=== PATIENT | female | born 1930 | race African-American/Black ===

== ENCOUNTER 2016-05-19 14:36 | Inpatient (IN) | payer OTHER ==
[~2016-05-19] VITALS: Ht 154.9 cm; Wt 63.9 kg
[~2016-05-19 14:36] MED LIST: ACTOS15 MG PO; ALPHAGAN P15 ML BOTH EYES; APRESOLINE100 MG PO; AQUAPHOR W-NAT50 GM TP; ASTELIN, ASTEPR30 ML NS; ATIVAN0.5 MG PO; AZOPT 1% O200 DROP/1 BOTH EYES; BACTRIM,SEPT1 TABLET PO; CALCIUM + D SO1 EACH PO; CALCIUM SUPPLEMENT PO; CALCIUM500 M6 PO; CARDIZEM CD120 M1 PO; CARDIZEM CD120 MG PO; CARDIZEM120 MG PO; CATAPRES-TTS 20.2 MG TP; CIPROFLOXACIN500 M1 PO; CLARITIN,ALAVAR10 MG PO; COLACE100 MG PO; COSOPT EYE DROPS5 ML BOTH EYES; COUMADIN,JANTO2.5 MG PO; COUMADIN,JANTOV10 MG PO; COUMADIN2 MG PO; COUMADIN2.5 MG PO; COUMADIN3 MG PO; COUMADIN4 MG PO; DILANTIN100 MG PO; DILTIAZEM 24HR120 MG PO; DOCUSATE SODIU100 MG PO; Dilantin PO; ENDOCET 5-3251 EACH PO; FLOVENT 22120 INHALA PO; LIPITOR10 MG PO; LIPITOR20 MG PO; LOPRESSOR50 MG PO; LORAZEPAM0.5 MG PO; LOVENOX40 MG/0.4 SC; LUMIGAN 0.50 DROP/22 BOTH EYES; MULTI-VITAMIN-1 EACH PO; MYCOSTATIN 100,60 ML PO; OXYCODONE-APAP1 EACH PO; PAXIL CR12.5 MG PO; PAXIL10 MG PO; PERCOCET 10/1 TABLET PO; PERCOCET 5/31 TABLET PO; PHENYTEK200 MG PO; PHENYTOIN 150 MG PO; PHENYTOIN SODI100 M1 PO; PIOGLITAZONE HC15 MG PO; SENNA8.6 MG PO; SEROQUEL100 MG PO; SEROQUEL12.5 MG PO; SEROQUEL50 MG PO; SIMBRINZA 1%-0.28 ML BOTH EYES; SINGULAIR10 MG PO; TYLENOL REGULA325 MG PO; WARFARIN SODIUM1 MG PO; XALATAN2.5 ML BOTH EYES; XARELTO15 MG PO; XARELTO20 MG PO
[2016-05-19 16:35] LABS: HEMATOCRIT 26.7 % (36.0-46.0); MCH 28.8 PG (29.0-34.0); MCV 87.3 FL (83-99); MEAN PLAT.VOLUME 8.9 uM^3 (9.5-12.4); PLATELET COUNT 354 K/uL (156-360); RBC DIS.WIDTH-CV 15.7 % (11.8-14.6); RBC DIS.WIDTH-SD 48.1 % (39-53); RED BLOOD COUNT 3.06 M/uL (3.80-5.20); WHITE BLOOD COUNT 5.4 K/uL (4.1-10.2)
[2016-05-19 16:42] LABS: ADD MIUA? YES; BILIRUBIN NEGATIVE; BLOOD SMALL; COLOR AMBER ((YELLOW)); GLUCOSE (STRIP) NEGATIVE; KETONES NEGATIVE; LEUKOCYTES MODERATE; NITRITE NEGATIVE; PROTEIN (STRIP) 100; SPECIFIC GRAVITY 1.016 (1.000-1.030); UROBILINOGEN 0.2 MG/DL (0.2-1.0)
[2016-05-19 16:46] LABS: CHLORIDE 114 mEq/L (99-109); POTASSIUM 3.6 mEq/L (3.7-5.4); SODIUM 141 mEq/L (136-147)
[2016-05-19 16:48] LABS: EOSINOPHIL (%) 0.4 % (0-5); GLUCOSE 82 mg/dL (70-99); MONOCYTE (%) 8.7 % (3-12); MONOCYTE COUNT 0.5 K/uL (0-0.8); NEUTROPHIL (%) 53.8 % (45-76); NEUTROPHIL COUNT 2.9 K/uL (1.8-6.4)
[2016-05-19 16:50] LABS: ANION GAP 8 MEQ/L (2-14); TOTAL BILIRUBIN 0.2 mg/dL (0.0-1.0)
[2016-05-19 16:52] LABS: ALKALINE PHOSPHATASE 171 IU/L (3-129); GFR ESTIMATE (CALCULATED) > 59 mL/min/
[2016-05-19 16:53] LABS: UREA NITROGEN (BUN) 16 mg/dL (9-23)
[2016-05-19 16:55] LABS: LIPASE 42 U/L (1.0-51.0)
[2016-05-19 17:02] LABS: CASTS NONE SEEN /LPF; EPITHELIAL CELLS NONE SEEN /HPF; MUCUS NONE SEEN /LPF
[2016-05-19 17:03] LABS: BACTERIA 4+ /HPF; RED BLOOD CELLS TNTC /HPF (0-5); UCUL ADDED? YES; WHITE BLOOD CELLS TNTC /HPF (0-5)
[2016-05-19] MEDS ORDERED: DILANTIN INFATA50 MG PO (19:19)
[2016-05-19] MEDS ORDERED: MIRTAZAPINE15 MG PO (19:21)
[2016-05-19 20:08] VITALS: BP 142/86
[2016-05-19 23:20] VITALS: BP 138/81
[2016-05-20] VITALS (11 sets, daily range): BP systolic 99–133; BP diastolic 49–66
[2016-05-20 07:09] LABS: ANION GAP 5 MEQ/L (2-14); CHLORIDE 117 MEQ/L (99-109); GFR ESTIMATE (CALCULATED) > 59 mL/min/; GLUCOSE 68 mg/dL (70-99); POTASSIUM 3.5 MEQ/L (3.7-5.4); SAMPLE HEMOLYSIS CHECK 0; SAMPLE ICTERIC CHECK 0; SAMPLE LIPEMIA CHECK 0; SODIUM 143 MEQ/L (136-147); UREA NITROGEN (BUN) 14 mg/dL (9-23)
[2016-05-20 07:45] LABS: EOSINOPHIL (%) 0.8 % (0-5); HEMATOCRIT 20.5 % (36.0-46.0); LYMPHOCYTE COUNT 1.7 K/uL (1.0-2.8); MCH 28.3 PG (29.0-34.0); MCHC 32.2 G/DL (30.0-36.0); MCV 87.7 FL (83-99); MONOCYTE (%) 9.5 % (3-12); MONOCYTE COUNT 0.4 K/uL (0-0.8); NEUTROPHIL (%) 47.2 % (45-76); NEUTROPHIL COUNT 1.9 K/uL (1.8-6.4); RBC DIS.WIDTH-CV 16.4 % (11.8-14.6); RBC DIS.WIDTH-SD 51.6 % (39-53)
[2016-05-20 07:47] LABS: RED BLOOD COUNT 2.33 M/uL (3.80-5.20)
[2016-05-20 08:31] LABS: MEAN PLAT.VOLUME 8.4 uM^3 (9.5-12.4)
[2016-05-20 08:57] LABS: PLATELET COUNT 224 K/uL (156-360)
[2016-05-21 00:24] VITALS: BP 137/62
[2016-05-21 07:00] VITALS: BP 140/64
[2016-05-21 07:48] LABS: EOSINOPHIL (%) 1.1 % (0-5); EOSINOPHIL COUNT 0.1 K/uL (0-0.3); HEMATOCRIT 31.2 % (36.0-46.0); LYMPHOCYTE COUNT 1.6 K/uL (1.0-2.8); MCH 28.8 PG (29.0-34.0); MCV 87.2 FL (83-99); MONOCYTE (%) 7.7 % (3-12); MONOCYTE COUNT 0.4 K/uL (0-0.8); NEUTROPHIL (%) 62.1 % (45-76); NEUTROPHIL COUNT 3.5 K/uL (1.8-6.4); PLATELET COUNT 235 K/uL (156-360); RBC DIS.WIDTH-CV 15.9 % (11.8-14.6); RBC DIS.WIDTH-SD 49.8 % (39-53)
[2016-05-21 07:53] LABS: RED BLOOD COUNT 3.58 M/uL (3.80-5.20); WHITE BLOOD COUNT 5.6 K/uL (4.1-10.2)
[2016-05-21 07:56] LABS: ANION GAP 6 MEQ/L (2-14); CHLORIDE 112 MEQ/L (99-109); GFR ESTIMATE (CALCULATED) > 59 mL/min/; GLUCOSE 65 mg/dL (70-99); POTASSIUM 3.9 MEQ/L (3.7-5.4); SAMPLE HEMOLYSIS CHECK 0; SAMPLE ICTERIC CHECK 0; SAMPLE LIPEMIA CHECK 0; SODIUM 141 MEQ/L (136-147); UREA NITROGEN (BUN) 15 mg/dL (9-23)
[2016-05-21 16:43] VITALS: BP 134/62
[2016-05-21 23:54] VITALS: BP 136/62
[2016-05-22 07:14] LABS: EOSINOPHIL (%) 0.2 % (0-5); HEMATOCRIT 29.8 % (36.0-46.0); IMMATURE GRANULOCYTE (%) 0.2 % (0.0-0.7); LYMPHOCYTE COUNT 1.5 K/uL (1.0-2.8); MCH 27.7 PG (29.0-34.0); MCHC 31.9 G/DL (30.0-36.0); MCV 86.9 FL (83-99); MONOCYTE (%) 8.3 % (3-12); MONOCYTE COUNT 0.4 K/uL (0-0.8); NEUTROPHIL (%) 61.1 % (45-76); NEUTROPHIL COUNT 3.1 K/uL (1.8-6.4); PLATELET COUNT 207 K/uL (156-360); RBC DIS.WIDTH-CV 15.7 % (11.8-14.6); RED BLOOD COUNT 3.43 M/uL (3.80-5.20); WHITE BLOOD COUNT 5.1 K/uL (4.1-10.2)
[2016-05-22 07:36] LABS: ANION GAP 6 MEQ/L (2-14); CHLORIDE 111 MEQ/L (99-109); GFR ESTIMATE (CALCULATED) > 59 mL/min/; GLUCOSE 70 mg/dL (70-99); POTASSIUM 3.7 MEQ/L (3.7-5.4); SAMPLE HEMOLYSIS CHECK 0; SAMPLE ICTERIC CHECK 0; SAMPLE LIPEMIA CHECK 0; SODIUM 141 MEQ/L (136-147); UREA NITROGEN (BUN) 14 mg/dL (9-23)
[2016-05-22 08:05] VITALS: BP 110/58
[2016-05-22 10:37] LABS: INFLUENZA A VIRAL ANTIGEN NEGATIVE; INFLUENZA B VIRAL ANTIGEN NEGATIVE
[2016-05-22 16:30] VITALS: BP 118/58
[2016-05-22 19:57] VITALS: BP 128/60
[2016-05-23] VITALS: BP 175/79
[2016-05-23 08:48] VITALS: BP 166/80
[2016-05-23 11:10] VITALS: BP 101/62
[2016-05-23 15:58] VITALS: BP 112/56
[2016-05-23 23:43] VITALS: BP 118/59
[2016-05-24 07:19] VITALS: BP 143/74
[2016-05-24 07:37] LABS: EOSINOPHIL (%) 0.7 % (0-5); HEMATOCRIT 31.7 % (36.0-46.0); LYMPHOCYTE COUNT 2.3 K/uL (1.0-2.8); MCH 29.1 PG (29.0-34.0); MCHC 32.8 G/DL (30.0-36.0); MCV 88.8 FL (83-99); MEAN PLAT.VOLUME 9.4 uM^3 (9.5-12.4); MONOCYTE (%) 11.5 % (3-12); MONOCYTE COUNT 0.5 K/uL (0-0.8); NEUTROPHIL (%) 34.6 % (45-76); NEUTROPHIL COUNT 1.5 K/uL (1.8-6.4); PLATELET COUNT 149 K/uL (156-360); RBC DIS.WIDTH-CV 15.9 % (11.8-14.6); RED BLOOD COUNT 3.57 M/uL (3.80-5.20); WHITE BLOOD COUNT 4.3 K/uL (4.1-10.2)
[2016-05-24 08:08] LABS: ANION GAP 7 MEQ/L (2-14); CHLORIDE 111 MEQ/L (99-109); GFR ESTIMATE (CALCULATED) > 59 mL/min/; GLUCOSE 63 mg/dL (70-99); POTASSIUM 3.9 MEQ/L (3.7-5.4); SAMPLE HEMOLYSIS CHECK 0; SAMPLE ICTERIC CHECK 0; SAMPLE LIPEMIA CHECK 0; SODIUM 139 MEQ/L (136-147); UREA NITROGEN (BUN) 15 mg/dL (9-23)
[2016-05-24 11:16] VITALS: BP 131/63
[2016-05-24 16:30] VITALS: BP 104/56
[2016-05-24 23:51] VITALS: BP 106/52
[2016-05-25 06:36] LABS: MCH 28.9 PG (29.0-34.0); MCHC 32.4 G/DL (30.0-36.0); MCV 89.2 FL (83-99); MEAN PLAT.VOLUME 9.3 uM^3 (9.5-12.4); PLATELET COUNT 141 K/uL (156-360); RBC DIS.WIDTH-SD 52.1 % (39-53); RED BLOOD COUNT 3.25 M/uL (3.80-5.20); WHITE BLOOD COUNT 3.6 K/uL (4.1-10.2)
[2016-05-25 06:46] LABS: EOSINOPHIL (%) 1.1 % (0-5); MONOCYTE (%) 8.4 % (3-12); MONOCYTE COUNT 0.3 K/uL (0-0.8); NEUTROPHIL (%) 33.2 % (45-76); NEUTROPHIL COUNT 1.2 K/uL (1.8-6.4)
[2016-05-25 07:03] LABS: ANION GAP 2 MEQ/L (2-14); CHLORIDE 113 MEQ/L (99-109); GFR ESTIMATE (CALCULATED) > 59 mL/min/; GLUCOSE 71 mg/dL (70-99); POTASSIUM 4.1 MEQ/L (3.7-5.4); SAMPLE HEMOLYSIS CHECK 0; SAMPLE ICTERIC CHECK 0; SAMPLE LIPEMIA CHECK 0; SODIUM 143 MEQ/L (136-147); UREA NITROGEN (BUN) 16 mg/dL (9-23)
[2016-05-25 07:48] VITALS: BP 124/60
[2016-05-25] MEDS ORDERED: FUROSEMIDE40 MG PO (11:25)
[2016-05-25] MEDS ORDERED: LEVAQUIN750 MG PO (11:26)
[2016-05-25] MEDS ORDERED: PERCOCET 10/1 TABLET PO (11:26)
[2016-05-25] MEDS ORDERED: LORAZEPAM0.5 MG PO (11:26)
[2016-05-25 12:00] VITALS: BP 107/59
== END 2016-05-25 14:16 | DRG 689 ==
LOC: EME 14:36 → EDOF 19:00 → 2EAST 19:00
PROVIDERS: Emergency Medicine; Family Medicine
PROC: 30233N1 Transfusion of Nonautologous Red Blood Cells into Peripheral Vein, Percutaneous Approach (ICD-10-PCS; principal; 2016-05-20)
DX: N39.0 Urinary tract infection, site not specified (principal); J18.9 Pneumonia, unspecified organism; F33.9 Major depressive disorder, recurrent, unspecified; S72.91XK Unspecified fracture of right femur, subsequent encounter for closed fracture with nonunion; R18.8 Other ascites; J90 Pleural effusion, not elsewhere classified; I11.0 Hypertensive heart disease with heart failure; F03.90 Unspecified dementia, unspecified severity, without behavioral disturbance, psychotic disturbance, mood disturbance, and anxiety; D63.8 Anemia in other chronic diseases classified elsewhere; J43.9 Emphysema, unspecified; I48.0 Paroxysmal atrial fibrillation; E11.9 Type 2 diabetes mellitus without complications; E86.0 Dehydration; N20.0 Calculus of kidney; E78.5 Hyperlipidemia, unspecified; I25.10 Atherosclerotic heart disease of native coronary artery without angina pectoris; G89.29 Other chronic pain; E66.9 Obesity, unspecified; E88.09 Other disorders of plasma-protein metabolism, not elsewhere classified; Z68.26 Body mass index [BMI] 26.0-26.9, adult; Z87.891 Personal history of nicotine dependence
CPT/HCPCS: 71010; 74177; 80048; 80053; 80185; 81003; 83690; 83880; 85025; 86850; 86900; 86901; 86920; 87086; 87502; 92526 GN; 92610 GN; 93306; 99281; 99285; J0696; J1940; J2543; J7040; J7050; P9016

== ENCOUNTER 2017-10-22 20:48 | Inpatient (IN) | payer OTHER ==
[~2017-10-22] VITALS: Ht 157.5 cm; Wt 85.0 kg
[~2017-10-22 20:48] MED LIST changes: +DILANTIN INFATA50 MG PO; +FUROSEMIDE40 MG PO; +FUROSEMIDE80 MG PO; +LATANOPROST2.5 ML BOTH EYES; +LEVAQUIN750 MG PO; +METOPROLOL TART50 MG PO; +MIRTAZAPINE15 MG PO; +TUMS500 MG PO; +VITAMIN D2000 UNI1 PO
[2017-10-22 22:13] LABS: ALBUMIN 2.9 g/dL (3.2-4.8); CHLORIDE 107 mEq/L (99-109); POTASSIUM 3.9 mEq/L (3.7-5.4); SODIUM 141 mEq/L (136-147)
[2017-10-22 22:16] LABS: GLUCOSE 123 mg/dL (70-99); TOTAL PROTEIN 6.8 g/dL (6.4-8.3)
[2017-10-22 22:18] LABS: TOTAL BILIRUBIN 2.1 mg/dL (0.0-1.0)
[2017-10-22 22:19] LABS: ALKALINE PHOSPHATASE 128 IU/L (3-129); CREATININE 3.5 mg/dL (0.6-1.3); GFR ESTIMATE (CALCULATED) 16 mL/min/; HEMATOCRIT 30.2 % (36.0-46.0); HEMOGLOBIN 9.9 G/DL (11.9-15.5); MCH 29.6 PG (29.0-34.0); MCHC 32.8 G/DL (30.0-36.0); MCV 90.1 FL (83-99); RBC DIS.WIDTH-CV 13.3 % (11.8-14.6); RBC DIS.WIDTH-SD 44.3 % (39-53); RED BLOOD COUNT 3.35 M/uL (3.80-5.20); WHITE BLOOD COUNT 24.8 K/uL (4.1-10.2)
[2017-10-22 22:20] LABS: UREA NITROGEN (BUN) 47 mg/dL (9-23)
[2017-10-22 22:21] LABS: AST (GOT) 32 IU/L (2-34)
[2017-10-22 22:22] LABS: ALT (GPT) 20 IU/L (3-49)
[2017-10-22 22:23] LABS: TROP-I INTERPRETATION NEGATIVE; TROPONIN-I 0.17 ng/mL (0.0-0.30)
[2017-10-22 22:46] LABS: APPEARANCE TURBID ((CLEAR)); BILIRUBIN NEGATIVE; BLOOD MODERATE; COLOR AMBER ((YELLOW)); GLUCOSE (STRIP) NEGATIVE; KETONES NEGATIVE; LEUKOCYTES SMALL; NITRITE NEGATIVE; PROTEIN (STRIP) 100; SPECIFIC GRAVITY 1.018 (1.000-1.030)
[2017-10-22 22:49] LABS: ABS NEUTROPHIL COUNT 17.2; ANISOCYTOSIS 1+; ATYPICAL LYMPHOCYTE 0.9 %; BAND NEUTROPHILS 22.6 % (0-8.0); BURR CELLS 1+; EOSINOPHIL ABS CT 0; HYPOCHROMASIA 1+; LYMPHOCYTES 5.2 % (15.0-45.0); MACROCYTES 1+; METAMYELOCYTES 14.8 %; MONOCYTES 6.1 % (0-9.0); MYELOCYTES 3.5 %; OVALOCYTES 1+; PLAT.SUFFICIENCY DECREASED; PLATELET COUNT 79 K/uL (156-360); SEG.NEUTROPHILS 46.9 % (46.0-76.0)
[2017-10-22 22:59] LABS: RED BLOOD CELLS TNTC /HPF (0-5); UCUL ADDED? YES; WHITE BLOOD CELLS TNTC /HPF (0-5)
[2017-10-22] MEDS ORDERED: LASIX20 MG PO (23:21)
[2017-10-22] MEDS ORDERED: FLONASE16 G1 BOTH NARES (23:21)
[2017-10-22] MEDS ORDERED: K-DUR20 MEQ PO (23:26)
[2017-10-22] MEDS ORDERED: TUMS500 MG PO (23:27)
[2017-10-22] MEDS ORDERED: DULCOLAX10 MG PR (23:30)
[2017-10-22] MEDS ORDERED: FLEET ENEMA-AD118 ML PR (23:30)
[2017-10-22] MEDS ORDERED: MILK OF MAGN PO (23:30)
[2017-10-22] MEDS ORDERED: ROBITUSSIN DM118 ML PO (23:31)
[2017-10-23] VITALS (7 sets, daily range): BP systolic 103–178; BP diastolic 20–103
[2017-10-24 03:40] VITALS: BP 119/65
[2017-10-24 08:45] VITALS: BP 161/70
[2017-10-24 13:10] VITALS: BP 162/70
[2017-10-24 13:31] LABS: CHLORIDE 109 MEQ/L (99-109); POTASSIUM 3.7 MEQ/L (3.7-5.4); SODIUM 143 MEQ/L (136-147)
[2017-10-24 13:37] LABS: GFR ESTIMATE (CALCULATED) 23 mL/min/; GLUCOSE 150 mg/dL (70-99); UREA NITROGEN (BUN) 66 mg/dL (9-23)
[2017-10-24 13:39] LABS: CREATININE 2.5 MG/DL (0.6-1.3)
[2017-10-24 15:00] VITALS: BP 152/71
[2017-10-24 20:16] VITALS: BP 136/63
[2017-10-24 23:22] VITALS: BP 161/70
[2017-10-25 03:39] VITALS: BP 163/73
[2017-10-25 05:39] LABS: HEMATOCRIT 28.9 % (36.0-46.0); HEMOGLOBIN 9.2 G/DL (11.9-15.5); MCH 29.2 PG (29.0-34.0); MCHC 31.8 G/DL (30.0-36.0); MCV 91.7 FL (83-99); NRBC (%) 0.1 /100 WBC (0-0); PLATELET COUNT 93 K/uL (156-360); RBC DIS.WIDTH-CV 13.9 % (11.8-14.6); RBC DIS.WIDTH-SD 47.4 % (39-53); RED BLOOD COUNT 3.15 M/uL (3.80-5.20)
[2017-10-25 06:09] LABS: ALBUMIN 2.1 G/DL (3.2-4.8); ALKALINE PHOSPHATASE 85 IU/L (3-129); ALT (GPT) 10 IU/L (3-49); AST (GOT) 12 IU/L (2-34); CHLORIDE 114 MEQ/L (99-109); GFR ESTIMATE (CALCULATED) 30 mL/min/; GLUCOSE 137 mg/dL (70-99); POTASSIUM 3.1 MEQ/L (3.7-5.4); SODIUM 146 MEQ/L (136-147); TOTAL BILIRUBIN 0.6 MG/DL (0.0-1.0); TOTAL PROTEIN 5.5 G/DL (6.4-8.3); UREA NITROGEN (BUN) 58 mg/dL (9-23)
[2017-10-25 06:54] LABS: A/G RATIO 0.8 (1.1-1.8); ALBUMIN 2.2 G/DL (3.4-5.0); CHLORIDE 113 MEQ/L (99-109); GLOBULINS 2.8 G/DL (2.3-3.5); GLUCOSE 133 mg/dL (70-99); MAGNESIUM 2.1 mg/dl (1.3-2.7); PHOSPHORUS 3.9 mg/dL (2.5-4.9); POTASSIUM 3.1 MEQ/L (3.7-5.4); SODIUM 144 MEQ/L (136-147); UREA NITROGEN (BUN) 64 mg/dL (9-23)
[2017-10-25 06:55] VITALS: BP 160/97
[2017-10-25 06:56] LABS: GFR ESTIMATE (CALCULATED) 30 mL/min/
[2017-10-25 06:59] LABS: ABS NEUTROPHIL COUNT 12.5; BAND NEUTROPHILS 6.1 % (0-8.0); EOSINOPHIL ABS CT 0.1; EOSINOPHILS 0.8 % (0-5.0); LYMPHOCYTES 8.7 % (15.0-45.0); MONOCYTES 0.9 % (0-9.0); SMUDGE CELLS 1.7
[2017-10-25 07:02] LABS: SEG.NEUTROPHILS 83.5 % (46.0-76.0)
[2017-10-25 08:38] LABS: INTACT PARATHYROID HORMONE 89 pg/mL (10-69)
[2017-10-25 11:15] LABS: UR CREATININE CONCENTRATION 90.6 MG/DL
[2017-10-25 12:25] VITALS: BP 181/79
[2017-10-25 16:45] VITALS: BP 193/74
[2017-10-25 20:55] VITALS: BP 148/68
[2017-10-25 23:19] VITALS: BP 164/71
[2017-10-26] VITALS (7 sets, daily range): BP systolic 141–190; BP diastolic 65–83
[2017-10-26 08:23] LABS: GLUCOSE 108 mg/dL (70-99); UREA NITROGEN (BUN) 49 mg/dL (9-23)
[2017-10-26 08:27] LABS: CREATININE 1.5 MG/DL (0.6-1.3); GFR ESTIMATE (CALCULATED) 42 mL/min/
[2017-10-26 08:28] LABS: PHOSPHORUS 2.2 mg/dL (2.5-4.9)
[2017-10-26 08:32] LABS: CHLORIDE 116 MEQ/L (99-109); POTASSIUM 3.6 MEQ/L (3.7-5.4); SODIUM 143 MEQ/L (136-147)
[2017-10-27 03:45] VITALS: BP 157/70
[2017-10-27 09:06] VITALS: BP 147/65
[2017-10-27 09:12] LABS: ALBUMIN 2.7 G/DL (3.2-4.8); CHLORIDE 115 MEQ/L (99-109); CREATININE 1.3 MG/DL (0.6-1.3); GFR ESTIMATE (CALCULATED) 50 mL/min/; GLUCOSE 122 mg/dL (70-99); PHOSPHORUS 2.4 mg/dL (2.5-4.9); SODIUM 145 MEQ/L (136-147); UREA NITROGEN (BUN) 33 mg/dL (9-23)
[2017-10-27 09:13] LABS: POTASSIUM 4.6 MEQ/L (3.7-5.4)
[2017-10-27 11:49] VITALS: BP 136/64
[2017-10-27 15:12] VITALS: BP 134/62
[2017-10-27 20:45] VITALS: BP 178/76
[2017-10-28] VITALS (8 sets, daily range): BP systolic 137–182; BP diastolic 65–78
[2017-10-28 03:46] LABS: ALBUMIN 2.3 g/dL (3.2-4.8)
[2017-10-28 03:47] LABS: POTASSIUM 3.8 mEq/L (3.7-5.4); SODIUM 143 mEq/L (136-147)
[2017-10-28 03:49] LABS: GLUCOSE 103 mg/dL (70-99)
[2017-10-28 03:52] LABS: PHOSPHORUS 2.4 mg/dL (2.5-4.9)
[2017-10-28 03:53] LABS: CHLORIDE 118 mEq/L (99-109); CREATININE 1.2 mg/dL (0.6-1.3); GFR ESTIMATE (CALCULATED) 54 mL/min/
[2017-10-28 03:54] LABS: UREA NITROGEN (BUN) 22 mg/dL (9-23)
[2017-10-29 03:33] VITALS: BP 156/79
[2017-10-29 05:54] LABS: HEMATOCRIT 30.8 % (36.0-46.0); HEMOGLOBIN 9.8 G/DL (11.9-15.5); MCH 29.3 PG (29.0-34.0); MCHC 31.8 G/DL (30.0-36.0); MCV 91.9 FL (83-99); PLATELET COUNT 113 K/uL (156-360); RBC DIS.WIDTH-CV 14.7 % (11.8-14.6); RBC DIS.WIDTH-SD 49.2 % (39-53); RED BLOOD COUNT 3.35 M/uL (3.80-5.20); WHITE BLOOD COUNT 13.3 K/uL (4.1-10.2)
[2017-10-29 06:32] LABS: ALBUMIN 2.3 G/DL (3.2-4.8); CHLORIDE 115 MEQ/L (99-109); CREATININE 1.2 MG/DL (0.6-1.3); GFR ESTIMATE (CALCULATED) 54 mL/min/; GLUCOSE 95 mg/dL (70-99); PHOSPHORUS 2.6 mg/dL (2.5-4.9); POTASSIUM 3.9 MEQ/L (3.7-5.4); SODIUM 143 MEQ/L (136-147); UREA NITROGEN (BUN) 15 mg/dL (9-23)
[2017-10-29 07:06] LABS: ABS NEUTROPHIL COUNT 11.5; ANISOCYTOSIS 1+; BURR CELLS 2+; EOSINOPHIL ABS CT 0.1; EOSINOPHILS 0.8 % (0-5.0); LYMPHOCYTES 6.1 % (15.0-45.0); MONOCYTES 6.1 % (0-9.0); MYELOCYTES 0.9 %; PLAT.SUFFICIENCY DECREASED; POIKILOCYTOSIS 1+; POLYCHROMASIA 1+; SEG.NEUTROPHILS 86.1 % (46.0-76.0); SMUDGE CELLS 8.7
[2017-10-29 07:52] VITALS: BP 167/70
[2017-10-29 10:57] LABS: ALBUMIN 1.97 G/DL (3.6-4.9); ALPHA-1 GLOBULIN 0.48 G/DL (0.15-0.40); ALPHA-2 GLOBULIN 0.77 G/DL (0.45-0.85); BETA-GLOBULIN 0.78 G/DL (0.65-1.15); GAMMA-GLOBULIN 1.01 G/DL (0.60-1.35)
[2017-10-29 11:06] VITALS: BP 177/67
[2017-10-29 15:12] VITALS: BP 160/58
[2017-10-29 21:00] VITALS: BP 174/74
[2017-10-30 00:20] VITALS: BP 154/74
[2017-10-30 04:35] VITALS: BP 143/63
[2017-10-30 05:37] LABS: BASOPHIL (%) 0.3 % (0-1); EOSINOPHIL (%) 0.9 % (0-5); EOSINOPHIL COUNT 0.1 K/uL (0-0.3); HEMATOCRIT 30.4 % (36.0-46.0); HEMOGLOBIN 9.6 G/DL (11.9-15.5); LYMPHOCYTE (%) 15.2 % (15-42); LYMPHOCYTE COUNT 2.3 K/uL (1.0-2.8); MCH 28.9 PG (29.0-34.0); MCHC 31.6 G/DL (30.0-36.0); MCV 91.6 FL (83-99); MONOCYTE (%) 6.3 % (3-12); NEUTROPHIL (%) 74.3 % (45-76); NEUTROPHIL COUNT 11.3 K/uL (1.8-6.4); RBC DIS.WIDTH-CV 14.8 % (11.8-14.6); RBC DIS.WIDTH-SD 49.6 % (39-53); RED BLOOD COUNT 3.32 M/uL (3.80-5.20); WHITE BLOOD COUNT 15.2 K/uL (4.1-10.2)
[2017-10-30 05:45] LABS: PLATELET COUNT 156 K/uL (156-360)
[2017-10-30 05:53] LABS: ALBUMIN 2.2 G/DL (3.2-4.8); CHLORIDE 114 MEQ/L (99-109); GFR ESTIMATE (CALCULATED) > 59 mL/min/; GLUCOSE 76 mg/dL (70-99); PHOSPHORUS 2.9 mg/dL (2.5-4.9); POTASSIUM 3.6 MEQ/L (3.7-5.4); SODIUM 140 MEQ/L (136-147); UREA NITROGEN (BUN) 13 mg/dL (9-23)
[2017-10-30 08:37] VITALS: BP 147/67
[2017-10-30 11:44] VITALS: BP 165/74
[2017-10-30] MEDS ORDERED: AMOX TR-K CLV1 EAC4 PO (13:02)
[2017-10-30] MEDS ORDERED: XARELTO20 MG PO (13:03)
[2017-10-30 15:17] VITALS: BP 158/64
== END 2017-10-30 15:49 | DRG 871 ==
LOC: EME → EDBD 20:48 → EDOF 10-23 01:26 → 4EAST 10-23 01:26
PROVIDERS: Emergency Medicine; Family Medicine; Hospitalist; Internal Medicine Nephrology
DX: A41.51 Sepsis due to Escherichia coli [E. coli] (principal); N39.0 Urinary tract infection, site not specified; N17.0 Acute kidney failure with tubular necrosis; E86.0 Dehydration; D69.6 Thrombocytopenia, unspecified; E83.52 Hypercalcemia; N20.2 Calculus of kidney with calculus of ureter; J44.9 Chronic obstructive pulmonary disease, unspecified; I11.0 Hypertensive heart disease with heart failure; I50.9 Heart failure, unspecified; E78.5 Hyperlipidemia, unspecified; E11.9 Type 2 diabetes mellitus without complications; F32.9 Major depressive disorder, single episode, unspecified; H40.9 Unspecified glaucoma; G40.909 Epilepsy, unspecified, not intractable, without status epilepticus; F03.90 Unspecified dementia, unspecified severity, without behavioral disturbance, psychotic disturbance, mood disturbance, and anxiety; I48.0 Paroxysmal atrial fibrillation; D64.9 Anemia, unspecified; R62.7 Adult failure to thrive; Z66 Do not resuscitate; Z86.73 Personal history of transient ischemic attack (TIA), and cerebral infarction without residual deficits; Z79.01 Long term (current) use of anticoagulants; Z68.1 Body mass index [BMI] 19.9 or less, adult
CPT/HCPCS: 71045; 73522; 74176; 76770; 80048; 80053; 80069; 81003; 82306; 82330; 82570; 82948; 83519 90; 83605; 83735; 83883 90; 83970; 84100; 84156; 84165; 84484; 84550; 85025; 85730; 87040; 87077; 87086; 87186; 87641; 87801; 93005; 99281; 99285; J0360; J0696; J1160; J2543; J3480; J7030; J7040; J7050

== ENCOUNTER 2017-11-19 07:03 | Day surgery (SDC) | payer OTHER ==
[~2017-11-19] VITALS: Ht 154.9 cm; Wt 76.2 kg
[~2017-11-19 07:03] MED LIST changes: +AMOX TR-K CLV1 EAC4 PO; +BACITRAYCIN PLU28 G1 TP; +DIFLUCAN200 MG PO; +DULCOLAX10 MG PR; +FLEET ENEMA-AD118 ML PR; +FLONASE16 G1 BOTH NARES; +K-DUR20 MEQ PO; +LASIX20 MG PO; +MILK OF MAGN PO; +NYSTOP60 GM TP; +ROBITUSSIN DM118 ML PO
[2017-11-19 08:13] VITALS: BP 180/70
[2017-11-19 11:25] VITALS: BP 170/80
== END 2017-11-19 12:39 ==
LOC: SDC 07:03
PROVIDERS: Urology
PROC: 0T948ZX Drainage of Left Kidney Pelvis, Via Natural or Artificial Opening Endoscopic, Diagnostic (ICD-10-PCS; principal; 2017-11-19)
PROC: 0T788DZ Dilation of Bilateral Ureters with Intraluminal Device, Via Natural or Artificial Opening Endoscopic (ICD-10-PCS; principal; 2017-11-19)
PROC: BT141ZZ Fluoroscopy of Kidneys, Ureters and Bladder using Low Osmolar Contrast (ICD-10-PCS; principal; 2017-11-19)
DX: N13.6 Pyonephrosis (principal); Z87.442 Personal history of urinary calculi; Z86.73 Personal history of transient ischemic attack (TIA), and cerebral infarction without residual deficits; Z99.3 Dependence on wheelchair; Z79.01 Long term (current) use of anticoagulants; I48.91 Unspecified atrial fibrillation; E11.9 Type 2 diabetes mellitus without complications; J44.9 Chronic obstructive pulmonary disease, unspecified; E78.5 Hyperlipidemia, unspecified; I50.9 Heart failure, unspecified; F31.9 Bipolar disorder, unspecified
CPT/HCPCS: 74420; 82948; 85730; 87077; 87086; 87186; 87641; C1769; C2625; J0690